=== PATIENT | male | born 1980 | race American Indian/Alaskan Native ===

== ENCOUNTER 2016-10-13 22:19 | Emergency (ER) | payer OTHER ==
[2016-10-14] MEDS ORDERED: DECADRON IM STA (02:30)
--- NOTE | 2016-10-14 02:30 | Emergency Department Report ---
ED Rash HPI - HPI Chief Complaint: Skin Rash Stated Complaint: BODY RASH Time Seen by Provider: 10/14/16 02:22 Duration: week ago Location: Chest, Back, Abdomen, Upper Extremities Suspected Cause: Unknown Rash Symptoms: Yes Itching, No Facial Swelling, No Tongue/Oral Swelling, No Breathing Difficulties, No Choking Sensation, No Wheezing/Dyspnea, No Peeling, No Blistering, No Fever, No Lightheaded, No Malaise, No Myalgias Severity: mild (4 out of 10 itching) Other History: Seen here reported generalized skin rash on chest abdomen on times one week. 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 Place calamine lotion to rash site with minimal relief of itching. Denies any fever or chills. Denies any cough, difficulty swallowing, shortness of breath, pain or stiffness, wheezing and stridor. ED Review of Systems ROS: Stated complaint: BODY RASH Other details as noted in HPI Comment: All other systems reviewed and negative Constitutional: denies: chills, fever ENT: denies: throat pain Respiratory: no symptoms reported Cardiovascular: denies: chest pain, palpitations, edema, syncope Gastrointestinal: denies: nausea, vomiting, diarrhea Musculoskeletal: denies: back pain, arthralgia, myalgia Skin: rash, pruritus Neurological: denies: headache, numbness, paresthesias, confusion, abnormal gait , vertigo ED Past Medical Hx - Past Medical History Previous Medical History?: No - Surgical History Past Surgical History?: No - Family History Family history: hypertension - Social History Smoking Status: Never Smoker Substance Use Type: None - Medications Home Medications: Home Medications Medication Instructions Recorded Confirmed Last Taken Type hydrOXYzine HCL [Atarax] 25 mg PO Q6HR PRN #20 tablet 10/14/16 Unknown Rx methylPREDNISolone [Medrol] 4 mg PO QAM #1 tab.ds.pk 10/14/16 Unknown Rx Rash Exam - Exam General: Vital signs noted. No distress. Alert and acting appropriately. This is a 36-year-old male well-nourished well-developed in no acute distress HEENT: No Periorbital Edema, No Conjuctival Injection, No Chemosis, No Perioral Edema, No Tongue Edema, No Uvular Edema, No Compromised Airway, No Drooling Lungs: Yes Good Air Exchange, No Wheezes, No Ronchi, No Stridor, No Cough, No Labored Respirations, No Retractions, No Use of Accessory Muscles, No Other Abnormal Lung Sounds Heart: Yes Regular, No Murmur Skin: Yes Other (noted dark color, not well demarcated areas to chest, back, abdomen and upper extremities.nontender to palpate. No induration or crusting. ), No Urticarial Rash, No Maculopapular Rash, No Morbilliform rash, No Bulla(e) , No Excoriations, No Weeping, No Tenderness, No Erythema, No Edema, No Encrustations Other: Positive: Abdomen Normal, Neurologic Normal, Musculoskeletal Normal ED Course Vital Signs 10/13/16 22:25 Temperature 97.7 F Pulse Rate 81 Respiratory 18 Rate Blood Pressure 106/69 [Right] O2 Sat by Pulse 98 Oximetry - Reevaluation(s) Reevaluation #1: 10/14/16 04:05 History given Decadron 10 mg in emergency room. I could not give Benadryl because he is driving. ED Medical Decision Making - Medical Decision Making ED course: She given Benadryl 20 mg IM and emergency room for contact dermatitis. Discussed with patient his diagnosis and treatment plan and is in agreement. I Discussed with patient that he will need to see dermatology in 3 days if rash does not clear. Patient discharged home with prescription for Atarax and Medrol Dosepak. Critical care attestation.: If time is entered above; I have spent that time in minutes in the direct care of this critically ill patient, excluding procedure time. 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 Take medication as prescribed. Atarax is given for itching and can cause drowsiness so please avoid driving or operating heavy machinery while taking this medication. Prescriptions: hydrOXYzine HCL [Atarax] 25 mg PO Q6HR PRN #20 tablet PRN Reason: Itching methylPREDNISolone [Medrol] 4 mg PO QAM #1 tab.ds.pk Referrals: SÁNCHEZ CLARK MD [Staff Physician] - 10/17/16 SUNNI JIMENEZ MD [Staff Physician] - 10/17/16 Forms: Work/School Release Form(ED), Accompanied Note
[2016-10-14 04:22] VITALS: BP 131/71
== END 2016-10-14 04:21 | disposition home or self-care (01) ==
LOC: ED 22:19
DX: L25.9 Unspecified contact dermatitis, unspecified cause (principal)
CPT/HCPCS: 96372; 99282; J1100

== ENCOUNTER 2017-09-06 15:47 | Emergency (ER) | payer OTHER ==
[2017-09-06] MEDS ORDERED: BOOSTRIX IM ONE (18:52)
[2017-09-06] MEDS ORDERED: NACL 0.9% IR ONE (18:52)
[2017-09-06] MEDS ORDERED: XYLOCAINE 1% 20 mL INFILTRATI ONE (18:52)
[2017-09-06] MEDS ORDERED: NORCO 5/325 PO ONE (18:52)
[2017-09-06] MEDS ORDERED: BACTRIM DS PO ONE (18:52)
--- NOTE | 2017-09-06 18:52 | Emergency Department Report ---
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 Patient has a deep gash on the ulnar side of the hand he is able to extend and flex his fingers. Patient is not up-to-date on [place] tetanus will get one of those as well as the laceration repair
--- NOTE | 2017-09-06 19:22 | Emergency Department Report ---
ED Laceration HPI - HPI Chief Complaint: Laceration/Recheck/Suture Stated Complaint: RIGHT HAND LACERATION Time Seen by Provider: 09/06/17 18:38 Occurred When: Today Location: Upper Extremity Severity: mild Tetanus Status: Not up to Date Laceration Symptoms: Yes Pain, No Foreign Body Sensation, No Numbness, No Weakness Other History: This is a 37-year-old male nontoxic, well nourished in appearance , no acute signs of distress presents to the ED with c/o of 4 cm laceration to. Pa right hand in the palm. Patient stated that he was lifting a toilet which broke while he was lifting it and caused the laceration. Patient denies up to date with tetanus. Patient denies any decreased ROM of fingers or hands. Patient denies any nausea, vomiting, chest pain, shortness of breathe, fever, chills, headache, stiff neck. Patient denies any allergies or PMH. ED Review of Systems ROS: Stated complaint: RIGHT HAND LACERATION Other details as noted in HPI Constitutional: denies: chills, fever Eyes: denies: eye pain, eye discharge, vision change ENT: denies: ear pain, throat pain Respiratory: denies: cough, shortness of breath, wheezing Cardiovascular: denies: chest pain, palpitations Endocrine: no symptoms reported Gastrointestinal: denies: abdominal pain, nausea, diarrhea Genitourinary: denies: urgency, dysuria Musculoskeletal: denies: back pain, joint swelling, arthralgia Skin: denies: rash, lesions Neurological: denies: headache, weakness, paresthesias Psychiatric: denies: anxiety, depression Hematological/Lymphatic: denies: easy bleeding, easy bruising ED Past Medical Hx - Past Medical History Previous Medical History?: No - Surgical History Past Surgical History?: No - Social History Smoking Status: Current Every Day Smoker Substance Use Type: Alcohol - Medications Home Medications: Home Medications Medication Instructions Recorded Confirmed Last Taken Type hydrOXYzine HCL [Atarax] 25 mg PO Q6HR PRN #20 tablet 10/14/16 Unknown Rx methylPREDNISolone [Medrol] 4 mg PO QAM #1 tab.ds.pk 10/14/16 Unknown Rx Sulfamethoxazole/Trimethoprim 1 each PO BID #14 tablet 09/06/17 Unknown Rx [Bactrim DS TAB] traMADol [Ultram] 50 mg PO Q6HR PRN #12 tablet 09/06/17 Unknown Rx Laceration Physical Exam - Exam General: Vital signs noted. No distress. Alert and acting appropriately. GENERAL: The patient is a well-developed, well-nourished in no apparent distress. Patient is alert and acting appropriately for age. Alert and oriented 3, no apparent distress, normal gait, atraumatic. HEENT: Head is normocephalic and atraumatic. PERRL, Extraocular muscles are intact. Pupils are equal, round, and reactive to light and accommodation. Nares appeared normal. Mouth is well hydrated and without lesions. Mucous membranes are moist. Posterior pharynx clear of any exudate or lesions. Mouth is well hydrated and without lesions. Tonsils not erythematous or swollen. Uvula midline. Tongue elevated. Mucous members are moist. Posterior pharynx clear, no exudate or lesions. Patent airways. NECK: Supple. No carotid bruits. No lymphadenopathy or thyromegaly.nontender. No meningitic signs are noted. LUNGS: Clear to auscultation. Non labor breathing. No intercostal retractions. Symmetrical with respiration, no wheezing, no rales, or crackles. HEART: Regular rate and rhythm without murmur, rubs or gallops. No reproducible. S1, S2 present, regular rate and rhythm without murmur, no rubs, no gallops. ABDOMEN: Soft, nontender, and nondistended. Positive bowel sounds. No hepatosplenomegaly was noted. No guarding or rebound tenderness, negative epigastric bruit. Negative psoas sign, negative disla sign, negative McBurneys sign EXTREMITIES: Without any cyanosis, clubbing, rash, lesions or edema. Peripheral pulses intact. Capillary refill less than 2 seconds. Full range of motion bilaterally. Able to move digits freely. NEUROLOGIC: Cranial nerves II through XII are grossly intact. Alert and oriented x 3. Normal gait. Symmetrical strength and sensation. Reflexes 2+ throughout. Cerebellar testing normal. GCS score of 15. PSYCHIATRIC: Normal affect with no suicidal or homicidal ideations. Skin: 4 cm lacertation to the right palm hand region. No foreign body noted. Wound Length (cm): 4 Laceration Location: Upper Extremity Laceration Exam: Yes Normal Distal CMS, No Foreign Body, No Exposed Tendon, Vessel, or Nerve, No Tendon Injury ED Course Vital Signs 09/06/17 16:27 Temperature 98 F Pulse Rate 76 Respiratory 15 Rate Blood Pressure 115/73 O2 Sat by Pulse 99 Oximetry - Reevaluation(s) Reevaluation #1: 09/06/17 19:24 Patient is speaking in full sentences with no signs of distress noted. - Consultations Consultation #1: 09/06/17 19:24 Patient has been consulted with Dr. Hanna about patient history, physical exam , and labs and examined and screened patient and agrees to ED plan of care and discharge plan of care. - Laceration /Wound Repair Right Hand Wound Location: upper extremity (right hand palm) Wound Length (cm): 4 Wound's Depth, Shape: superficial, flap Wound Explored: clean Irrigated w/ Saline (ccs): 40 Betadine Prep?: Yes Anesthesia: 1% Lidocaine Volume Anesthetic (ccs): 3 Wound Debrided: minimal Wound Repaired With: sutures Suture Size/Type: 4:0, proline Number of Sutures: 4 Layer Closure?: Yes Deep Layer Suture Size/Type: 3:0 (vicyrl) Number Deep Layer Sutures: 2 Sterile Dressing Applied?: Yes Progress: Under sterile field, I used Betadine to clean the area. I then used 40 mL of normal saline to flush the area. I then used 1% lidocaine plain and injected 3 mL to the wound. The deeper dermis is sutured with 3-0 Vicyrl with total of 2 sutures. I then used a 4-0 Prolene to suture the laceration. Number of stitches 4. I then applied a sterile 4 x 4 with tape. Minimal bleeding noted but is under control. Patient tolerated procedure well with no signs of distress. ED Medical Decision Making - Medical Decision Making This is a 37-year-old male that presents with laceration. Patient is stable and was examined by me and Dr. Hanna. Xray has been obtained to rule out fracture or foreign body and was dictated by radiologist within normal limits. Patient is notified of xray results with no further questions noted by the patient. The laceration was successfully sutured with no signs of distress noted. Patient was instructed to return in 10 days for suture removal. Patient was instructed to proper wound care. Patient was instructed Follow-up with a primary care doctor in 3-5 days or if symptoms worsen and continue return to emergency room as soon as possible. Patient received a tetanus booster. Patient was instructed not to operate any machinery after discharge. At time of discharge, the patient does not seem toxic or ill in appearance. No acute signs of distress noted. Patient agrees to discharge treatment plan of care. No further questions noted by the patient. Critical care attestation.: If time is entered above; I have spent that time in minutes in the direct care of this critically ill patient, excluding procedure time. ED Disposition Clinical Impression: Laceration Disposition: DC-01 TO HOME OR SELFCARE Is pt being admited?: No Does the pt Need Aspirin: No Condition: Stable Instructions: Sulfamethoxazole/Trimethoprim (By mouth), Tramadol (By mouth), Suture Care (ED), Laceration (ED) Additional Instructions: Follow-up with a primary care doctor in 3-5 days or if symptoms worsen and continue return to emergency room as soon as possible. Return in 10 days for suture removal Prescriptions: Sulfamethoxazole/Trimethoprim [Bactrim DS TAB] 1 each PO BID #14 tablet traMADol [Ultram] 50 mg PO Q6HR PRN #12 tablet PRN Reason: Pain Referrals: PRIMARY MD JUAQUIN [Primary Care Provider] - 3-5 Days ARELI GREENWODO MD [Staff Physician] - 3-5 Days [facility] [Outside] - 3-5 Days [facility] [Outside] - 3-5 Days Forms: Work/School Release Form(ED)
--- NOTE | 2017-09-06 21:09 | XRay Report ---
FINAL REPORT EXAM: XR HAND 3+V RT HISTORY: lac r/o foreign body TECHNIQUE: Three views right hand Comparison: None FINDINGS: The region of laceration is not identified. There is no radiopaque foreign body or soft tissue gas. There is a 5th metacarpal shaft 8 x 7 millimeter lucent lesion with mild expansion. There is ill-defined medullary irregularity of the entire 5th metacarpal with slight expansion and thinning of this bone. IMPRESSION: No radiopaque foreign body or soft tissue gas. The region of the laceration is not marked. No acute fracture identified. Abnormal 5th metacarpal shaft medullary space may suggest fibrous dysplasia. If this finding is not known, recommend further clinical assessment and imaging with MR.
[2017-09-06 22:44] VITALS: BP 115/75
== END 2017-09-06 22:42 | disposition home or self-care (01) ==
LOC: ED 15:47
DX: S61.411A Laceration without foreign body of right hand, initial encounter (principal)
CPT/HCPCS: 90471; 90715